=== PATIENT | male | born 1960 | race Two or more races ===

== ENCOUNTER → 2024-08-24 | Outpatient (CLI) | payer MEDICAID ==
[~2024-08-24] MED LIST: CEPH-37; IOHEXOL 350 MG/ML 100ML IJ ONE; NOR10T
[2024-08-24 10:15] VITALS: BP 192/106; PULSE 96; RESP 16; O2SAT 95
[2024-08-24] MEDS: SODIUM CHLORIDE 0.9% 500 ML IV ONE (10:15)
[2024-08-24] MEDS: cloNIDine HCL 0.1 MG TAB PO ONE ×2 (11:09→12:41)
[2024-08-24] MEDS: cloNIDine HCL 0.1 MG TAB ONE ×2 (11:11→12:44)
[2024-08-24 13:09] VITALS: BP 198/101; PULSE 79; RESP 18; O2SAT 95
== END | disposition home or self-care (01) ==
LOC: Rad HDHVI 09:51
PROVIDERS: ATTEND Internal Medicine Cardiovascular Disease
DX: I10 Essential (primary) hypertension (principal)
CPT/HCPCS: 96360; 96361; G0463; J7040; Q9967

== ENCOUNTER → 2024-08-26 | Outpatient (CLI) | payer MEDICAID ==
[~2024-08-26] VITALS: Ht 30.5 cm; Wt 0.5 kg
[~2024-08-26] MED LIST changes: +cloNIDine HCL 0.1 MG TAB ONE
[2024-08-26 11:58] VITALS: BP 178/89; PULSE 94; RESP 76; O2SAT 95
[2024-08-26] MEDS: cloNIDine HCL 0.1 MG TAB PO ONE (12:39)
[2024-08-26 13:35] VITALS: BP 175/93; PULSE 87; RESP 18; O2SAT 96
== END | disposition home or self-care (01) ==
LOC: Rad HDHVI 11:31
PROVIDERS: ATTEND Internal Medicine Cardiovascular Disease
DX: I70.1 Atherosclerosis of renal artery (principal); I10 Essential (primary) hypertension
CPT/HCPCS: 74175; G0463; Q9967

== ENCOUNTER → 2024-09-04 | Outpatient (CLI) | payer MEDICAID ==
[~2024-09-04] MED LIST changes: -IOHEXOL 350 MG/ML 100ML IJ ONE; -cloNIDine HCL 0.1 MG TAB ONE
== END | disposition home or self-care (01) ==
LOC: Rad HDHVI 08:43
PROVIDERS: ATTEND Internal Medicine Cardiovascular Disease
DX: I10 Essential (primary) hypertension (principal)
CPT/HCPCS: 93306

== ENCOUNTER → 2024-09-14 | Outpatient (CLI) | payer MEDICAID ==
[~2024-09-14] VITALS: Ht 160 cm; Wt 62.6 kg
[~2024-09-14] MED LIST changes: +ADENOSINE 53 MG in GIVE UN-DILUTED 0 ML IV ONE; +ADENOSINE 90 MG/30 ML INJ IV ONE
== END | disposition home or self-care (01) ==
LOC: Rad HDHVI 09:30
PROVIDERS: ATTEND Internal Medicine Cardiovascular Disease
DX: I10 Essential (primary) hypertension (principal); E11.9 Type 2 diabetes mellitus without complications; E78.00 Pure hypercholesterolemia, unspecified
CPT/HCPCS: 78452; 93005; 96374; A9500; J0153; 96375